=== PATIENT | female | born 1990 | race Caucasian/White ===

== ENCOUNTER → 2018-02-21 | Outpatient (CLI) | payer OTHER ==
[2018-02-21 13:19] LABS: LUTEINIZING HORMONE 12.02 IU/L; PROLACTIN 7.41 ng/mL
[2018-02-21 13:20] LABS: FOLLICLE STIMULAT HORMONE 6.99 IU/L
== END | disposition home or self-care (01) ==
LOC: C.LAB1850 10:53
PROVIDERS: ATTEND Physician Assistant
DX: N92.6 Irregular menstruation, unspecified (principal)